=== PATIENT | male | born 1975 | race Caucasian/White ===

== ENCOUNTER 2019-07-26 09:38 | Emergency (ER) | payer OTHER ==
[~2019-07-26] VITALS: Ht 177.8 cm; Wt 72.6 kg
[2019-07-26] MEDS ORDERED: OMEPRAZOLE 20 M20 M1 PO (10:03)
[2019-07-26] MEDS ORDERED: NORCO 5-325 TA1 EAC1 PO (11:23)
[2019-07-26] MEDS ORDERED: AUGMENTIN 875-1 EACH PO (11:23)
[2019-07-26 11:35] VITALS: BP 129/100
== END 2019-07-26 11:36 | disposition home or self-care (01) ==
LOC: M.ERS 09:38
DX: L03.317 Cellulitis of buttock (principal)